=== PATIENT | female | born 1970 | race Caucasian/White ===

== ENCOUNTER 2020-06-20 19:16 | Emergency (ER) | payer OTHER ==
[~2020-06-20] VITALS: Ht 162.6 cm; Wt 75.3 kg
[2020-06-20 19:17] VITALS: BP 161/105
--- NOTE | 2020-06-20 19:19 | NUR ---
49 Y/O FEMALE PRESENTED TO ED C/O SOB X 1 WEEK. PT STATES SHE WAS IN THE SHOWER TODA Y AND FELT LIKE SHE COULDN'T CATCH HER BREATH. PT CALLED HER FRIEND TO COME HELP HER AND THEY CALLED 911. PT HAS HX OF HYPERTHYROIDISM BUT TODAY WENT AND SAW HER PCP AND WAS DX W/ HYPOTHYROIDISM , AFTER PT HAD ALREADY TAKEN THYROID MEDICATION. PER EMS PT WAS SA02 88% ON RMAIR , PT WAS PLACED ON NRB 13L SAO2 99%. PT IS CURRENTLY ON NC 2L SAO2 98%. RR EVEN AND MILD LABORED. DIMISHED BREATHSOUNDS W/ BL PLEURAL FRICTION. OBSERVED EDEMA ON PT LEGS AND SWELLING OF FACE. PT SECONDARY C/O OF EAR PAIN , PT FEELS LIKE SHE IS IN A TUNNEL. ABD HARD , DISTENDED AND NONTENDER. A/O X4. PT PLACED IN GOWN AND PLACED ON PLASTICS FABRICATOR , PULSE OX AND BP CUFF. PT RESTING IN BED , HOB ELEVATED , SIDE RAIL X2 FOR PT SAFETY. PMH: HTN, HYPERTHYROIDISM, AFIB NKA
--- NOTE | 2020-06-20 19:19 | NUR ---
PT ABDI ALS. TAKEN TO BED 2
--- NOTE | 2020-06-20 19:30 | NUR ---
20G IV INSERTION ON R A/C BY EMS PRIOR TO ER ARRIVAL. IV FLUSHED W/ 10 CC NS , IV PATENT , NO INFILTRATION, REDNESS, SWELLING OR PAIN NOTED AT IV SITE.
--- NOTE | 2020-06-20 20:39 | NUR ---
PT C/O OF ROOM BEING TOO HOT, PT PROVIDED COOLING MEASURES FOR COMFORT.
--- NOTE | 2020-06-20 21:24 | NUR ---
LAB AT BEDSIDE.
--- NOTE | 2020-06-20 21:40 | NUR ---
PT C/O OF ROOM BEING HOT, PT PROVIDED COOL CLOTHS AND DIMMED ROOM LIGHTS FOR PT COMFORT. PT RESTING IN BED, LOCKED AND IN LOWEST POSITION, HOB ELEVATED, SIDE RAIL X2 FOR PT SAFETY. SAO2 98% , HR 104 , RR EVEN AND MILD LABORED.
[2020-06-20 21:42] LABS: BASOPHILS # (AUTO) 0.1 K/uL (0.00-0.22); BASOPHILS % (AUTO) 0.4 % (0.0-2.0); EOSINOPHILS # (AUTO) 0.1 K/uL (0-0.4); EOSINOPHILS % (AUTO) 0.7 % (0.0-4.0); HEMATOCRIT 39.5 % (36-48); HEMOGLOBIN 12.7 g/dL (12.0-16.0); LYMPHOCYTES % (AUTO) 21.3 % (20.5-51.1); MEAN CORPUSCULAR HEMOGLOBIN 30 pg (27-31); MEAN CORPUSCULAR HGB CONC 32 g/dL (33-37); MONOCYTES # (AUTO) 1.3 K/uL (0.8-1.0); MONOCYTES % (AUTO) 9.6 % (1.7-9.3); NEUTROPHILS # (AUTO) 9.5 K/uL (1.8-7.7); PLATELET COUNT (AUTO) 226 K/uL (140-450); RED BLOOD CELL COUNT(AUTO) 4.29 MIL/uL (4.20-5.40); RED CELL DISTRIBUTION WIDTH 15.8 % (11.6-13.7); WHITE BLOOD COUNT (AUTO) 13.9 K/uL (4.8-10.8)
--- NOTE | 2020-06-20 21:49 | NUR ---
ERMD AT BEDSIDE FOR EVALUATION.
[2020-06-20 22:09] LABS: ALBUMIN 3.9 g/dL (3.4-5.0); ANION GAP 13.7 (8-16); CARBON DIOXIDE 28.1 mmol/L (21-32); CREATININE 0.9 mg/dL (0.6-1.3); FREE T4 (FREE THYROXINE) 0.6 ng/dL (0.76-1.46); POTASSIUM 3.8 mmol/L (3.5-5.1); THYROID STIMULATING HORMONE 10.3 uIU/mL (0.34-3.74); TOTAL BILIRUBIN 0.5 mg/dL (0.0-1.0)
--- NOTE | 2020-06-20 22:11 | NUR ---
PT PLACED ON BEDPAN FOR COLLECTION OF URINE SAMPLE
--- NOTE | 2020-06-20 22:23 | NUR ---
PER DR. FATIMAH NICHOLS TO GIVE PT WATER . PROVIDED WATER FOR PT COMFOT.
[2020-06-20] MEDS ORDERED: NACL 0.9% 1,000 ML IV ONE (22:25)
--- NOTE | 2020-06-20 22:27 | NUR ---
SPOKE W/ DR. SHERIDAN TO HOLD MEDICATION ORDER FOR NS BOLUS D/T PT CHF & FLUID OVERLOAD.
--- NOTE | 2020-06-20 22:39 | NUR ---
PT URINE SAMPLE COLLECTED AND WALKED TO LAB . PER LAB NOT ENOUGH URINE PROVIDED FOR DRUG SCREEN AND UA , AT THIS TIME LAB WILL COMPLETE DRUG SCREEN AND WAIT FOR MORE URINE FOR UA. DR. SHERIDAN MADE AWARE.
--- NOTE | 2020-06-20 22:42 | NUR ---
PT TAKEN TO CT VIA RMARGA.
--- NOTE | 2020-06-20 23:00 | NUR ---
PT RETURNED FROM CT VIA RESCONDIDO . [facility] AND BP CUFF.
[2020-06-20 23:02] LABS: BARBITURATE, URINE NEGATIVE ng/ml (NEG <=200); BENZODIAZEPINE, URINE NEGATIVE ng/mL (NEG <=200); CANNABINOID, URINE NEGATIVE ng/mL (NEG <=50); COCAINE, URINE NEGATIVE ng/mL (NEG <=300); OPIATE, URINE POSITIVE ng/mL (NEG <=2000); PHENCYCLIDINE SCREEN,URINE NEGATIVE ng/mL (NEG <=25)
--- NOTE | 2020-06-20 23:32 | NUR ---
dr. be at bedside for reevaluation
[2020-06-20] MEDS ORDERED: FUROSEMIDE 40 MG/4 ML VIAL IVP ONE (23:40)
[2020-06-20] MEDS ORDERED: MORPHINE SULFATE 4 MG/ML SYR IVP ONE (23:40)
--- NOTE | 2020-06-21 01:10 | NUR ---
IV removed, catheter intact and site benign. Applied folded 4x4 gauze and tape to stop bleeding.
[2020-06-21 01:15] VITALS: BP 139/74
--- NOTE | 2020-06-21 01:15 | NUR ---
Patient discharged with v/s stable. Written and verbal after care instructions given and explained. Patient alert, oriented and verbalized understanding of instructions. Wheel Chair Assisted with to car , pt getting ride from friend. All questions addressed prior to discharge. ID band removed. Patient advised to follow up with PMD. Rx of LASIX given. Patient educated on indication of medication including possible reaction and side effects. Opportunity to ask questions provided and answered.
== END 2020-06-21 01:15 | disposition home or self-care (01) ==
LOC: MED 19:16
DX: I50.9 Heart failure, unspecified (principal); F15.129 Other stimulant abuse with intoxication, unspecified; K74.60 Unspecified cirrhosis of liver; H92.09 Otalgia, unspecified ear; K08.89 Other specified disorders of teeth and supporting structures; R60.1 Generalized edema; E03.9 Hypothyroidism, unspecified
CPT/HCPCS: 36415; 71045; 74176; 80053; 80305; 83880; 84439; 84443; 84484; 85025; 96374; 96375; 99285; J1940; J2270